=== PATIENT | female | born 1995 | race African-American/Black ===

== ENCOUNTER 2024-12-09 09:37 | Outpatient (CLI) | payer OTHER ==
[~2024-12-09] VITALS: Ht 175.3 cm; Wt 122.9 kg
[2024-12-09] MEDS ORDERED: HOME MED LIST COMPLETE! XX SCH (11:35)
[2024-12-09] MEDS ORDERED: PRENTAB9 PO (11:40)
== END 2024-12-09 10:55 | disposition home or self-care (01) ==
LOC: M LDO 09:37
PROVIDERS: ATTEND Specialist
DX: Z04.1 Encounter for examination and observation following transport accident (principal); O26.892 Other specified pregnancy related conditions, second trimester; Z3A.24 24 weeks gestation of pregnancy; Y92.9 Unspecified place or not applicable; Y93.9 Activity, unspecified; Y99.9 Unspecified external cause status
CPT/HCPCS: 59025; G0463